=== PATIENT | female | born 1985 | race Caucasian/White ===

== ENCOUNTER 2016-11-22 09:26 | Emergency (ER) | payer OTHER, BC ==
[~2016-11-22] VITALS: Ht 172.7 cm; Wt 98.8 kg
[~2016-11-22 09:26] MED LIST: BCP; MOTRIN800 MG PO; Motrin PO; NATALCARE RX1 TABLET PO; NOHOMEMEDS; PRENATAL VITAM1 EAC1 PO; PROTONIX40 MG; Percocet 5/325,Endoc PO; ZARAH TABLET1 EACH PO
[2016-11-22 11:24] LABS: HEMATOCRIT 42.1 % (36.0-46.0); MCH 28.6 PG (29.0-34.0); MCHC 34.2 G/DL (30.0-36.0); MCV 83.5 FL (83-99); PLATELET COUNT 305 K/uL (156-360); RBC DIS.WIDTH-CV 13.9 % (11.8-14.6); RBC DIS.WIDTH-SD 41.9 % (39-53); RED BLOOD COUNT 5.04 M/uL (3.80-5.20); WHITE BLOOD COUNT 10.4 K/uL (4.1-10.2)
[2016-11-22 11:35] LABS: D-DIMER ELISA 0.53 mg/L FEU (< 0.57)
[2016-11-22 11:37] LABS: CHLORIDE 106 mEq/L (99-109); POTASSIUM 4.1 mEq/L (3.7-5.4); SODIUM 137 mEq/L (136-147)
[2016-11-22 11:39] LABS: GLUCOSE 130 mg/dL (70-99)
[2016-11-22 11:41] LABS: ANION GAP 10 MEQ/L (2-14)
[2016-11-22 11:43] LABS: GFR ESTIMATE (CALCULATED) > 59 mL/min/
[2016-11-22 11:45] LABS: UREA NITROGEN (BUN) 10 mg/dL (9-23)
[2016-11-22 11:46] LABS: SALICYLATE < 5.0 MG/DL (15-30)
[2016-11-22 11:56] LABS: TROP-I INTERPRETATION NEGATIVE; TROPONIN-I < 0.01 ng/mL (0.0-0.30)
[2016-11-22 14:10] LABS: QUANTITATIVE HCG < 4.0 MIU/ML
[2016-11-22] MEDS ORDERED: ATARAX,VISTARIL50 MG PO (14:31)
[2016-11-22 14:43] VITALS: BP 117/70
== END 2016-11-22 14:40 | disposition home or self-care (01) ==
LOC: EME 09:26
PROVIDERS: Emergency Medicine
DX: R42 Dizziness and giddiness (principal); H93.19 Tinnitus, unspecified ear; F41.9 Anxiety disorder, unspecified
CPT/HCPCS: 71020; 80048; 84443; 84484; 84702; 85027; 85379; 93005; 99281; 99284; G0480; Q0177

== ENCOUNTER 2017-02-23 20:02 | Emergency (ER) | payer OTHER, BC ==
[~2017-02-23] VITALS: Ht 172.7 cm; Wt 99.7 kg
[~2017-02-23 20:02] MED LIST changes: +ATARAX,VISTARIL50 MG PO
[2017-02-23 22:49] VITALS: BP 147/119
== END 2017-02-23 22:50 | disposition home or self-care (01) ==
LOC: EME 20:02
DX: R51 Headache (principal); H93.19 Tinnitus, unspecified ear
CPT/HCPCS: 70450; 70486; 99281; 99284; J0780

== ENCOUNTER 2017-03-14 17:34 | Emergency (ER) | payer OTHER, BC ==
[~2017-03-14] VITALS: Ht 172.7 cm; Wt 99.6 kg
[2017-03-14 18:32] LABS: ADD MIUA? YES; BILIRUBIN NEGATIVE; BLOOD SMALL; COLOR YELLOW ((YELLOW)); GLUCOSE (STRIP) NEGATIVE; KETONES NEGATIVE; LEUKOCYTES NEGATIVE; NITRITE NEGATIVE; PROTEIN (STRIP) NEGATIVE; SPECIFIC GRAVITY 1.009 (1.000-1.030); UROBILINOGEN 0.2 MG/DL (0.2-1.0)
[2017-03-14 18:40] LABS: HEMATOCRIT 43.2 % (36.0-46.0); MCH 29.1 PG (29.0-34.0); MCHC 33.6 G/DL (30.0-36.0); MCV 86.7 FL (83-99); MEAN PLAT.VOLUME 9.1 uM^3 (9.5-12.4); PLATELET COUNT 325 K/uL (156-360); RBC DIS.WIDTH-CV 13.4 % (11.8-14.6); RBC DIS.WIDTH-SD 42.5 % (39-53); RED BLOOD COUNT 4.98 M/uL (3.80-5.20); WHITE BLOOD COUNT 10.8 K/uL (4.1-10.2)
[2017-03-14 18:41] LABS: BACTERIA NONE SEEN /HPF; EPITHELIAL CELLS RARE /HPF; MUCUS TRACE /LPF; RED BLOOD CELLS 0-5 /HPF (0-5); UCUL ADDED? NO; WHITE BLOOD CELLS 0-5 /HPF (0-5)
[2017-03-14 18:50] LABS: CHLORIDE 104 mEq/L (99-109); POTASSIUM 3.6 mEq/L (3.7-5.4); SODIUM 137 mEq/L (136-147)
[2017-03-14 18:53] LABS: GLUCOSE 92 mg/dL (70-99)
[2017-03-14 18:54] LABS: ANION GAP 7 MEQ/L (2-14)
[2017-03-14 18:55] LABS: TOTAL BILIRUBIN 0.3 mg/dL (0.0-1.0)
[2017-03-14 18:56] LABS: ALKALINE PHOSPHATASE 77 IU/L (3-129); GFR ESTIMATE (CALCULATED) > 59 mL/min/
[2017-03-14 18:57] LABS: UREA NITROGEN (BUN) 9 mg/dL (9-23)
[2017-03-14 19:06] LABS: QUANTITATIVE HCG < 4.0 MIU/ML
[2017-03-14 19:12] LABS: LIPASE 22 U/L (1.0-51.0)
[2017-03-14] MEDS ORDERED: PERCOCET 5/31 TABLET PO (21:31)
[2017-03-14] MEDS ORDERED: ZOFRAN ODT4 MG PO (21:31)
[2017-03-14 21:40] VITALS: BP 117/63
== END 2017-03-14 21:53 | disposition home or self-care (01) ==
LOC: EME 17:34
DX: R10.84 Generalized abdominal pain (principal); R11.2 Nausea with vomiting, unspecified; R19.7 Diarrhea, unspecified; R30.0 Dysuria; K42.9 Umbilical hernia without obstruction or gangrene
CPT/HCPCS: 74177; 80053; 81003; 83690; 84702; 85027; 99281; 99284; J2405; J3010; J7030

== ENCOUNTER 2017-10-16 23:36 | Emergency (ER) | payer BC ==
[~2017-10-16] VITALS: Ht 172.7 cm; Wt 104.0 kg
[~2017-10-16 23:36] MED LIST changes: +PERCOCET 5/31 TABLET PO; +ZOFRAN ODT4 MG PO
[2017-10-17 00:41] LABS: HEMATOCRIT 42.7 % (36.0-46.0); HEMOGLOBIN 14.4 G/DL (11.9-15.5); MCH 29.1 PG (29.0-34.0); MCHC 33.7 G/DL (30.0-36.0); MCV 86.3 FL (83-99); PLATELET COUNT 310 K/uL (156-360); RBC DIS.WIDTH-CV 13.3 % (11.8-14.6); RBC DIS.WIDTH-SD 41.5 % (39-53); RED BLOOD COUNT 4.95 M/uL (3.80-5.20); WHITE BLOOD COUNT 14.4 K/uL (4.1-10.2)
[2017-10-17 00:51] LABS: CHLORIDE 104 mEq/L (99-109); POTASSIUM 3.9 mEq/L (3.7-5.4); SODIUM 136 mEq/L (136-147)
[2017-10-17 00:53] LABS: GLUCOSE 108 mg/dL (70-99)
[2017-10-17 00:57] LABS: CREATININE 0.8 mg/dL (0.6-1.3); GFR ESTIMATE (CALCULATED) > 59 mL/min/; UREA NITROGEN (BUN) 9 mg/dL (9-23)
[2017-10-17 01:05] LABS: QUANTITATIVE HCG 87.7 MIU/ML
[2017-10-17 01:17] LABS: APPEARANCE CLEAR ((CLEAR)); BILIRUBIN NEGATIVE; BLOOD LARGE; COLOR STRAW ((YELLOW)); GLUCOSE (STRIP) NEGATIVE; KETONES NEGATIVE; LEUKOCYTES NEGATIVE; NITRITE NEGATIVE; PROTEIN (STRIP) NEGATIVE; SPECIFIC GRAVITY 1.004 (1.000-1.030); UROBILINOGEN 0.2 MG/DL (0.2-1.0)
[2017-10-17 01:35] LABS: BACTERIA RARE /HPF; EPITHELIAL CELLS RARE /HPF; MUCUS NONE SEEN /LPF; RED BLOOD CELLS 0-5 /HPF (0-5); UCUL ADDED? NO; WHITE BLOOD CELLS 0-5 /HPF (0-5)
[2017-10-17 05:09] LABS: SOURCE SWAB
[2017-10-17 05:54] VITALS: BP 124/90
== END 2017-10-17 05:55 | disposition home or self-care (01) ==
LOC: EME 23:36
PROVIDERS: Emergency Medicine
DX: R10.30 Lower abdominal pain, unspecified (principal); M54.5 Low back pain; R39.15 Urgency of urination; Z32.01 Encounter for pregnancy test, result positive; R00.0 Tachycardia, unspecified
CPT/HCPCS: 76801; 80048; 81003; 84702; 85027; 86900; 86901; 87210; 87491; 87591; 99281; 99285